=== PATIENT | male | born 1985 | race Caucasian/White ===

== ENCOUNTER 2021-01-23 12:18 | Inpatient (IN) | payer OTHER ==
[2021-01-23 13:58] VITALS: BMI 33.8
[2021-01-23] MEDS ORDERED: METHOCARBAMOL 500 MG TABLET PO PRN (15:06)
[2021-01-23] MEDS ORDERED: IBUPROFEN 400 MG TABLET (FP) PO PRN (15:06)
[2021-01-23] MEDS ORDERED: MAGNESIUM CITRATE 300 ML BOTTLE PO PRN (15:06)
[2021-01-23] MEDS ORDERED: LORazepam 1 MG TABLET PO PRN (15:06)
[2021-01-23] MEDS ORDERED: BISMUTH SUBSALICYLATE 262 MG/15 ML BTL PO PRN (15:06)
[2021-01-23] MEDS ORDERED: MENTHOL/PHENOL 1 EACH UD MM PRN (15:06)
[2021-01-23] MEDS ORDERED: NICOTINE POLACRILEX 2 MG GUM BUC PRN (15:06)
[2021-01-23] MEDS ORDERED: ACETAMINOPHEN 325 MG TABLET (FP) PO PRN ×2 (15:06)
[2021-01-23] MEDS ORDERED: MAG HYDROX/AL HYDROX/SIMETH 30 ML UNIT-DOSE CUP PO PRN (15:06)
[2021-01-23] MEDS ORDERED: MAGNESIUM HYDROX 2400MG/30ML ORAL SUSPENSION 30 ML CUP PO PRN (15:06)
[2021-01-23] MEDS: NICOTINE 14 MG/24 HOURS TOPICAL PATCH TD SCH (15:51)
[2021-01-23] MEDS: PRENATAL VITAMINS W/ FOLIC ACID TABLET (FP) PO SCH (15:51)
[2021-01-23] MEDS: LORazepam 2 MG TABLET PO SCH ×2 (16:56→22:25)
[2021-01-23] MEDS: hydrOXYzine PAMOATE 25 MG CAPSULE (FP) PO SCH ×2 (17:00→22:26)
[2021-01-23 19:41] LABS: CALCIUM 8.7 mg/dL (8.5-10.1)
[2021-01-23 19:42] LABS: ALBUMIN 4.3 g/dl (3.4-5.0); BLOOD UREA NITROGEN 10.1 mg/dL (7-18)
[2021-01-23 19:45] LABS: CREATININE 0.7 mg/dL (0.55-1.3)
[2021-01-23 19:46] LABS: BILIRUBIN,TOTAL 0.5 mg/dL (0.2-1); TOT PROT 8.1 g/dl (6.4-8.2)
[2021-01-23 19:47] LABS: HEMATOCRIT 41.3 % (35.4-49); HEMOGLOBIN 13.6 GM/dL (11.7-16.9); MCHC 32.9 g/dl (32.0-35.9); MEAN CELL VOLUME 88.1 fl (80-96); MEAN PLT VOLUME 8.4 fl (7.5-11.1); PLATELET COUNT 238 K/MM3 (134-434); RBC 4.69 M/mm3 (4.00-5.60); RDW 14.1 % (11.9-15.9); WHITE BLOOD COUNT 6.3 K/mm3 (4.0-10.0)
[2021-01-23] MEDS ORDERED: MELATONIN 5 MG TABLETS PO SCH (22:00)
[2021-01-23] MEDS: BUPRENORPHINE/NALOXONE 8 MG/2 MG FILM PACKET SL SCH (22:25)
[2021-01-23] MEDS: THIAMINE HCL 100 MG TABLET (FP) PO SCH (22:26)
[2021-01-24] MEDS: LORazepam 2 MG TABLET PO SCH ×4 (05:07→22:09)
[2021-01-24] MEDS: hydrOXYzine PAMOATE 25 MG CAPSULE (FP) PO SCH ×5 (05:08→22:11)
[2021-01-24] MEDS: BUPRENORPHINE/NALOXONE 8 MG/2 MG FILM PACKET SL SCH ×2 (10:22→22:08)
[2021-01-24] MEDS: NICOTINE 14 MG/24 HOURS TOPICAL PATCH TD SCH (10:22)
[2021-01-24] MEDS: PRENATAL VITAMINS W/ FOLIC ACID TABLET (FP) PO SCH (10:22)
[2021-01-24] MEDS ORDERED: FLU VACCINE (FLULAVAL) PF 60 MCG/0.5 ML SYRINGE 2020-2021 IM ONE (12:00)
[2021-01-24] MEDS: ONDANSETRON *ODT* 4 MG TABLET SL PRN (14:51)
[2021-01-24] MEDS: THIAMINE HCL 100 MG TABLET (FP) PO SCH (22:09)
[2021-01-24] MEDS: SUVOREXANT 10 MG TABLET PO PRN (22:10)
[2021-01-25] MEDS: hydrOXYzine PAMOATE 25 MG CAPSULE (FP) PO SCH ×5 (05:16→22:21)
[2021-01-25] MEDS: LORazepam 1 MG TABLET PO SCH ×4 (05:17→22:22)
[2021-01-25] MEDS: PRENATAL VITAMINS W/ FOLIC ACID TABLET (FP) PO SCH (10:49)
[2021-01-25] MEDS: BUPRENORPHINE/NALOXONE 8 MG/2 MG FILM PACKET SL SCH ×2 (10:49→22:21)
[2021-01-25] MEDS: NICOTINE 14 MG/24 HOURS TOPICAL PATCH TD SCH (10:53)
[2021-01-25] MEDS: THIAMINE HCL 100 MG TABLET (FP) PO SCH (22:21)
[2021-01-25] MEDS: SUVOREXANT 10 MG TABLET PO PRN (23:00)
[2021-01-26] MEDS: LORazepam 0.5 MG TABLET PO SCH ×4 (05:25→22:17)
[2021-01-26] MEDS: hydrOXYzine PAMOATE 25 MG CAPSULE (FP) PO SCH ×5 (05:25→22:18)
[2021-01-26] MEDS: BUPRENORPHINE/NALOXONE 8 MG/2 MG FILM PACKET SL SCH ×2 (10:21→22:16)
[2021-01-26] MEDS: PRENATAL VITAMINS W/ FOLIC ACID TABLET (FP) PO SCH (10:21)
[2021-01-26] MEDS: NICOTINE 14 MG/24 HOURS TOPICAL PATCH TD SCH (10:22)
[2021-01-26] MEDS: LORazepam 0.5 MG TABLET PO PRN ×2 (13:00→19:07)
[2021-01-26] MEDS ORDERED: hydrOXYzine PAMOATE 25 MG CAPSULE (FP) PO SCH (16:00)
[2021-01-26] MEDS: ONDANSETRON *ODT* 4 MG TABLET SL PRN (18:40)
[2021-01-26] MEDS ORDERED: SUVOREXANT 10 MG TABLET PO PRN (22:00)
[2021-01-26] MEDS: THIAMINE HCL 100 MG TABLET (FP) PO SCH (22:16)
[2021-01-27] MEDS: hydrOXYzine PAMOATE 25 MG CAPSULE (FP) PO SCH ×3 (00:16→07:57)
[2021-01-27] MEDS ORDERED: LORazepam 0.5 MG TABLET PO ONE (05:00)
[2021-01-27 09:04] VITALS: BP 136/88; PULSE 76; TEMP 96.9
[2021-01-27] MEDS ORDERED: VENLAFAXINE HCL 75 MG E.R. CAPSULES PO SCH (10:00)
[2021-01-27] MEDS: PRENATAL VITAMINS W/ FOLIC ACID TABLET (FP) PO SCH (10:46)
[2021-01-27] MEDS: NICOTINE 14 MG/24 HOURS TOPICAL PATCH TD SCH (10:46)
[2021-01-27] MEDS: BUPRENORPHINE/NALOXONE 8 MG/2 MG FILM PACKET SL SCH (10:46)
== END 2021-01-27 11:06 | disposition other institution (70) | DRG 773 ==
LOC: YASAS 12:18 → Y6N 15:05
PROVIDERS: ADMIT Allergy & Immunology; ATTEND Allergy & Immunology
PROC: HZ2ZZZZ Detoxification Services for Substance Abuse Treatment (ICD-10-PCS; principal; 2021-01-23)
DX: F10.230 Alcohol dependence with withdrawal, uncomplicated (principal); F13.230 Sedative, hypnotic or anxiolytic dependence with withdrawal, uncomplicated; F14.20 Cocaine dependence, uncomplicated; F11.20 Opioid dependence, uncomplicated; F19.282 Other psychoactive substance dependence with psychoactive substance-induced sleep disorder; F19.24 Other psychoactive substance dependence with psychoactive substance-induced mood disorder; F41.8 Other specified anxiety disorders; F32.9 Major depressive disorder, single episode, unspecified; F90.9 Attention-deficit hyperactivity disorder, unspecified type; Z51.81 Encounter for therapeutic drug level monitoring; Z56.0 Unemployment, unspecified; Z59.0 Homelessness
CPT/HCPCS: 36415; 80053; 85027; 86780; 93005; 93010; C9803; G0008; Q0162; Q2036; U0003; U0005

== ENCOUNTER 2021-06-02 11:01 | Inpatient (IN) | payer OTHER ==
[2021-06-02 11:45] VITALS: BMI 27.3
[2021-06-02] MEDS ORDERED: MAGNESIUM CITRATE 300 ML BOTTLE PO PRN (14:48)
[2021-06-02] MEDS ORDERED: MAGNESIUM HYDROX 2400MG/30ML ORAL SUSPENSION 30 ML CUP PO PRN (14:48)
[2021-06-02] MEDS ORDERED: IBUPROFEN 400 MG TABLET (FP) PO PRN (14:48)
[2021-06-02] MEDS ORDERED: METHOCARBAMOL 500 MG TABLET PO PRN (14:48)
[2021-06-02] MEDS ORDERED: MENTHOL/PHENOL 1 EACH UD MM PRN (14:48)
[2021-06-02] MEDS ORDERED: ACETAMINOPHEN 325 MG TABLET (FP) PO PRN ×2 (14:48)
[2021-06-02] MEDS ORDERED: MAG HYDROX/AL HYDROX/SIMETH 30 ML UNIT-DOSE CUP PO PRN (14:48)
[2021-06-02] MEDS ORDERED: ONDANSETRON *ODT* 4 MG TABLET SL PRN (14:48)
[2021-06-02] MEDS ORDERED: BISMUTH SUBSALICYLATE 524 MG/30 ML PO PRN (14:48)
[2021-06-02] MEDS ORDERED: NICOTINE 10 MG CARTRIDGE (INHALER) IH PRN (14:48)
[2021-06-02] MEDS ORDERED: methaDONE HCL 10 MG TABLET PO ONE (18:00)
[2021-06-02] MEDS: hydrOXYzine PAMOATE 25 MG CAPSULE (FP) PO SCH ×2 (18:39→22:24)
[2021-06-02] MEDS: diazePAM 5 MG TABLET PO PRN (18:43)
[2021-06-02] MEDS ORDERED: MELATONIN 5 MG TABLETS PO SCH (22:00)
[2021-06-02] MEDS: diazePAM 5 MG TABLET PO SCH (22:22)
[2021-06-02] MEDS: THIAMINE HCL 100 MG TABLET (FP) PO SCH (22:24)
[2021-06-03] MEDS: diazePAM 5 MG TABLET PO SCH ×4 (06:23→22:12)
[2021-06-03] MEDS: hydrOXYzine PAMOATE 25 MG CAPSULE (FP) PO SCH ×5 (06:23→22:13)
[2021-06-03] MEDS: PRENATAL VITAMINS W/ FOLIC ACID TABLET (FP) PO SCH (10:21)
[2021-06-03 10:47] LABS: HEMOGLOBIN 13.8 GM/dL (11.7-16.9); MCH 29.3 pg (25.7-33.7); MCHC 33.7 g/dl (32.0-35.9); MEAN CELL VOLUME 86.9 fl (80-96); MEAN PLT VOLUME 8.8 fl (7.5-11.1); PLATELET COUNT 194 10^3/uL (134-434); RBC 4.71 M/mm3 (4.00-5.60); RDW 14.3 % (11.9-15.9); WHITE BLOOD COUNT 4.7 K/mm3 (4.0-10.0)
[2021-06-03 11:00] LABS: CALCIUM 8.8 mg/dL (8.5-10.1)
[2021-06-03 11:01] LABS: ALBUMIN 3.3 g/dl (3.4-5.0); BLOOD UREA NITROGEN 12.4 mg/dL (7-18)
[2021-06-03 11:04] LABS: CREATININE 0.6 mg/dL (0.55-1.3)
[2021-06-03 11:05] LABS: BILIRUBIN,TOTAL 0.4 mg/dL (0.2-1)
[2021-06-03 11:06] LABS: TOT PROT 7.2 g/dl (6.4-8.2)
[2021-06-03 11:54] LABS: HIV INTERPRETATION NEGATIVE (NEGATIVE)
[2021-06-03] MEDS ORDERED: methaDONE HCL 10 MG TABLET PO ONE (12:44)
[2021-06-03] MEDS: diazePAM 5 MG TABLET PO PRN (12:57)
[2021-06-03] MEDS: methaDONE HCL 40 MG DISPERSABLE TABLET PO SCH (13:04)
[2021-06-03] MEDS: GABAPENTIN 300 MG CAPSULE PO SCH ×2 (14:51→22:12)
[2021-06-03] MEDS: cloNIDine HCL 0.1 MG TABLET PO PRN (17:13)
[2021-06-03] MEDS: THIAMINE HCL 100 MG TABLET (FP) PO SCH (22:13)
[2021-06-03] MEDS: SUVOREXANT 10 MG TABLET PO PRN (22:14)
[2021-06-04] MEDS: methaDONE HCL 40 MG DISPERSABLE TABLET PO SCH (05:41)
[2021-06-04] MEDS: GABAPENTIN 300 MG CAPSULE PO SCH ×3 (05:41→22:12)
[2021-06-04] MEDS: diazePAM 5 MG TABLET PO SCH ×3 (05:41→22:12)
[2021-06-04] MEDS: hydrOXYzine PAMOATE 25 MG CAPSULE (FP) PO SCH ×5 (05:41→22:12)
[2021-06-04] MEDS: PRENATAL VITAMINS W/ FOLIC ACID TABLET (FP) PO SCH (10:12)
[2021-06-04] MEDS: VENLAFAXINE HCL 150 MG E.R. CAPSULE PO SCH (10:12)
[2021-06-04] MEDS: diazePAM 5 MG TABLET PO PRN ×2 (10:13→17:32)
[2021-06-04] MEDS: THIAMINE HCL 100 MG TABLET (FP) PO SCH (22:12)
[2021-06-04] MEDS: SUVOREXANT 10 MG TABLET PO PRN (22:12)
[2021-06-05] MEDS: hydrOXYzine PAMOATE 25 MG CAPSULE (FP) PO SCH ×5 (06:00→22:16)
[2021-06-05] MEDS: diazePAM 5 MG TABLET PO SCH ×2 (06:07→17:32)
[2021-06-05] MEDS: methaDONE HCL 40 MG DISPERSABLE TABLET PO SCH (06:08)
[2021-06-05] MEDS: GABAPENTIN 300 MG CAPSULE PO SCH ×3 (06:10→22:16)
[2021-06-05] MEDS: diazePAM 5 MG TABLET PO PRN ×3 (10:06→22:18)
[2021-06-05] MEDS: PRENATAL VITAMINS W/ FOLIC ACID TABLET (FP) PO SCH (10:06)
[2021-06-05] MEDS: VENLAFAXINE HCL 150 MG E.R. CAPSULE PO SCH (10:06)
[2021-06-05 14:05] LABS: GLUCOSE,FASTING 123 mg/dL (74-106)
[2021-06-05 14:11] LABS: ALK PHOS 144 U/L (45-117)
[2021-06-05] MEDS: SUVOREXANT 10 MG TABLET PO PRN (22:17)
[2021-06-05] MEDS: THIAMINE HCL 100 MG TABLET (FP) PO SCH (22:17)
[2021-06-06] MEDS: cloNIDine HCL 0.1 MG TABLET PO PRN (00:44)
[2021-06-06] MEDS: methaDONE HCL 40 MG DISPERSABLE TABLET PO SCH (05:34)
[2021-06-06] MEDS: GABAPENTIN 300 MG CAPSULE PO SCH (05:35)
[2021-06-06] MEDS: hydrOXYzine PAMOATE 25 MG CAPSULE (FP) PO SCH ×2 (05:35→10:13)
[2021-06-06] MEDS ORDERED: diazePAM 5 MG TABLET PO ONE (06:00)
[2021-06-06 08:50] VITALS: BP 118/79; PULSE 52; TEMP 96.4
[2021-06-06] MEDS: VENLAFAXINE HCL 150 MG E.R. CAPSULE PO SCH (10:13)
[2021-06-06] MEDS: diazePAM 5 MG TABLET PO PRN (10:13)
[2021-06-06] MEDS: PRENATAL VITAMINS W/ FOLIC ACID TABLET (FP) PO SCH (10:13)
[2021-06-06] MEDS ORDERED: propRANOLol HCL 10 MG TABLET PO SCH (14:00)
== END 2021-06-06 12:15 | disposition other institution (70) | DRG 773 ==
LOC: YASAS 11:01 → Y3N 15:06
PROVIDERS: ADMIT Allergy & Immunology; ATTEND Allergy & Immunology
PROC: HZ2ZZZZ Detoxification Services for Substance Abuse Treatment (ICD-10-PCS; principal; 2021-06-02)
DX: F10.230 Alcohol dependence with withdrawal, uncomplicated (principal); F11.20 Opioid dependence, uncomplicated; F13.230 Sedative, hypnotic or anxiolytic dependence with withdrawal, uncomplicated; F14.20 Cocaine dependence, uncomplicated; F17.210 Nicotine dependence, cigarettes, uncomplicated; F41.9 Anxiety disorder, unspecified; F32.9 Major depressive disorder, single episode, unspecified; F19.24 Other psychoactive substance dependence with psychoactive substance-induced mood disorder; F19.280 Other psychoactive substance dependence with psychoactive substance-induced anxiety disorder; F19.282 Other psychoactive substance dependence with psychoactive substance-induced sleep disorder; F90.9 Attention-deficit hyperactivity disorder, unspecified type; G47.00 Insomnia, unspecified; Z86.69 Personal history of other diseases of the nervous system and sense organs; Z86.19 Personal history of other infectious and parasitic diseases; Z56.0 Unemployment, unspecified; Z59.0 Homelessness
CPT/HCPCS: 36415; 80053; 82947; 84075; 85027; 86780; 87389; C9803; J0735; U0003; U0005

== ENCOUNTER 2021-06-06 11:57 | Inpatient (IN) | payer OTHER ==
[2021-06-06] MEDS ORDERED: ACETAMINOPHEN 325 MG TABLET (FP) PO PRN (12:55)
[2021-06-06] MEDS ORDERED: guaiFENesin 200 MG/10 ML 10 ML UNIT-DOSE CUPS PO PRN (12:55)
[2021-06-06] MEDS ORDERED: MAGNESIUM HYDROX 2400MG/30ML ORAL SUSPENSION 30 ML CUP PO PRN (12:55)
[2021-06-06] MEDS ORDERED: MAGNESIUM CITRATE 300 ML BOTTLE PO PRN (12:55)
[2021-06-06] MEDS ORDERED: MENTHOL/PHENOL 1 EACH UD MM PRN (12:55)
[2021-06-06] MEDS ORDERED: IBUPROFEN 400 MG TABLET (FP) PO PRN (12:55)
[2021-06-06] MEDS ORDERED: P-EPHED 60MG/TRIPROLIDI 2.5MG TABLET PO PRN (12:55)
[2021-06-06] MEDS ORDERED: MAG HYDROX/AL HYDROX/SIMETH 30 ML UNIT-DOSE CUP PO PRN (12:55)
[2021-06-06] MEDS ORDERED: LOPERAMIDE HCL 2 MG CAPSULE PO PRN (12:55)
[2021-06-06] MEDS ORDERED: GABAPENTIN 300 MG CAPSULE PO SCH (14:00)
[2021-06-06] MEDS: propRANOLol HCL 10 MG TABLET PO SCH ×2 (14:34→21:54)
[2021-06-06] MEDS ORDERED: GABAPENTIN 400 MG CAPSULE PO SCH (16:30)
[2021-06-06] MEDS: hydrOXYzine PAMOATE 25 MG CAPSULE (FP) PO PRN ×2 (17:04→21:54)
[2021-06-06] MEDS: MELATONIN 5 MG TABLETS PO SCH (21:53)
[2021-06-06] MEDS: THIAMINE HCL 100 MG TABLET (FP) PO SCH (21:54)
[2021-06-06] MEDS: GABAPENTIN 300 MG CAPSULE PO SCH (21:56)
[2021-06-06] MEDS: NICOTINE 10 MG CARTRIDGE (INHALER) IH PRN (21:57)
[2021-06-06] MEDS: SUVOREXANT 10 MG TABLET PO PRN (22:35)
[2021-06-07] MEDS ORDERED: PT OWN MED DRAWER 7, Y5N ONE ×2 (06:33→22:23)
[2021-06-07] MEDS: GABAPENTIN 300 MG CAPSULE PO SCH ×3 (06:39→21:10)
[2021-06-07] MEDS: methaDONE HCL 40 MG DISPERSABLE TABLET PO SCH (06:39)
[2021-06-07] MEDS: propRANOLol HCL 10 MG TABLET PO SCH ×4 (07:26→21:09)
[2021-06-07] MEDS: VENLAFAXINE HCL 150 MG E.R. CAPSULE PO SCH (09:44)
[2021-06-07] MEDS: NICOTINE 21 MG/24 HOURS TOPICAL PATCH TD SCH (09:44)
[2021-06-07] MEDS: NICOTINE 10 MG CARTRIDGE (INHALER) IH PRN (09:45)
[2021-06-07] MEDS ORDERED: NICOTINE 7 MG/24 HOURS TOPICAL PATCH TD SCH (10:00)
[2021-06-07] MEDS: PRENATAL VITAMINS W/ FOLIC ACID TABLET (FP) PO SCH (10:05)
[2021-06-07] MEDS ORDERED: hydrOXYzine PAMOATE 25 MG CAPSULE (FP) PO ONE (13:45)
[2021-06-07] MEDS: METHOCARBAMOL 500 MG TABLET PO PRN (21:09)
[2021-06-07] MEDS: hydrOXYzine PAMOATE 25 MG CAPSULE (FP) PO PRN (21:09)
[2021-06-07] MEDS: SUVOREXANT 10 MG TABLET PO PRN (21:10)
[2021-06-07] MEDS: THIAMINE HCL 100 MG TABLET (FP) PO SCH (21:11)
[2021-06-07] MEDS: MELATONIN 5 MG TABLETS PO SCH (21:11)
[2021-06-08] MEDS ORDERED: PT OWN MED DRAWER 7, Y5N ONE ×2 (03:08→20:29)
[2021-06-08] MEDS: methaDONE HCL 40 MG DISPERSABLE TABLET PO SCH (06:18)
[2021-06-08] MEDS: propRANOLol HCL 10 MG TABLET PO SCH ×3 (06:19→21:07)
[2021-06-08] MEDS: GABAPENTIN 300 MG CAPSULE PO SCH ×3 (06:19→21:07)
[2021-06-08] MEDS: NICOTINE 21 MG/24 HOURS TOPICAL PATCH TD SCH (09:29)
[2021-06-08] MEDS: VENLAFAXINE HCL 150 MG E.R. CAPSULE PO SCH (09:29)
[2021-06-08] MEDS: PRENATAL VITAMINS W/ FOLIC ACID TABLET (FP) PO SCH (09:30)
[2021-06-08] MEDS: MELATONIN 5 MG TABLETS PO SCH (21:07)
[2021-06-08] MEDS: THIAMINE HCL 100 MG TABLET (FP) PO SCH (21:07)
[2021-06-08] MEDS: METHOCARBAMOL 500 MG TABLET PO PRN (21:08)
[2021-06-08] MEDS: SUVOREXANT 10 MG TABLET PO PRN (21:09)
[2021-06-09] MEDS ORDERED: PT OWN MED DRAWER 7, Y5N ONE ×3 (05:32→19:13)
[2021-06-09] MEDS: methaDONE HCL 40 MG DISPERSABLE TABLET PO SCH (06:14)
[2021-06-09] MEDS: GABAPENTIN 300 MG CAPSULE PO SCH ×3 (06:15→21:18)
[2021-06-09] MEDS: propRANOLol HCL 10 MG TABLET PO SCH ×3 (06:15→21:18)
[2021-06-09] MEDS: PRENATAL VITAMINS W/ FOLIC ACID TABLET (FP) PO SCH (09:31)
[2021-06-09] MEDS: NICOTINE 21 MG/24 HOURS TOPICAL PATCH TD SCH (09:31)
[2021-06-09] MEDS: VENLAFAXINE HCL 150 MG E.R. CAPSULE PO SCH (09:31)
[2021-06-09] MEDS: hydrOXYzine PAMOATE 25 MG CAPSULE (FP) PO PRN ×2 (10:48→21:19)
[2021-06-09] MEDS: NICOTINE 10 MG CARTRIDGE (INHALER) IH PRN (15:49)
[2021-06-09] MEDS: SUVOREXANT 10 MG TABLET PO PRN (21:19)
[2021-06-09] MEDS: THIAMINE HCL 100 MG TABLET (FP) PO SCH (21:20)
[2021-06-09] MEDS: MELATONIN 5 MG TABLETS PO SCH (22:11)
[2021-06-10] MEDS: GABAPENTIN 300 MG CAPSULE PO SCH ×3 (06:26→21:52)
[2021-06-10] MEDS: propRANOLol HCL 10 MG TABLET PO SCH ×3 (06:26→21:52)
[2021-06-10] MEDS: methaDONE HCL 40 MG DISPERSABLE TABLET PO SCH (06:27)
[2021-06-10] MEDS: hydrOXYzine PAMOATE 25 MG CAPSULE (FP) PO PRN ×3 (08:00→17:47)
[2021-06-10] MEDS: PRENATAL VITAMINS W/ FOLIC ACID TABLET (FP) PO SCH (09:57)
[2021-06-10] MEDS: NICOTINE 21 MG/24 HOURS TOPICAL PATCH TD SCH (09:57)
[2021-06-10] MEDS ORDERED: PT OWN MED DRAWER 7, Y5N ONE (09:58)
[2021-06-10] MEDS: VENLAFAXINE HCL 150 MG E.R. CAPSULE PO SCH (09:58)
[2021-06-10] MEDS: NICOTINE 10 MG CARTRIDGE (INHALER) IH PRN (18:23)
[2021-06-10] MEDS: THIAMINE HCL 100 MG TABLET (FP) PO SCH (21:52)
[2021-06-10] MEDS: MELATONIN 5 MG TABLETS PO SCH (21:52)
[2021-06-10] MEDS ORDERED: SUVOREXANT 10 MG TABLET PO PRN (22:00)
[2021-06-11] MEDS ORDERED: PT OWN MED DRAWER 7, Y5N ONE ×3 (03:15→21:19)
[2021-06-11] MEDS: GABAPENTIN 300 MG CAPSULE PO SCH ×3 (06:36→21:18)
[2021-06-11] MEDS: propRANOLol HCL 10 MG TABLET PO SCH ×3 (06:36→21:19)
[2021-06-11] MEDS: methaDONE HCL 40 MG DISPERSABLE TABLET PO SCH (06:36)
[2021-06-11] MEDS: NICOTINE 10 MG CARTRIDGE (INHALER) IH PRN ×2 (07:54→14:10)
[2021-06-11] MEDS: hydrOXYzine PAMOATE 25 MG CAPSULE (FP) PO PRN ×4 (07:54→21:18)
[2021-06-11] MEDS: NICOTINE 21 MG/24 HOURS TOPICAL PATCH TD SCH (09:32)
[2021-06-11] MEDS: VENLAFAXINE HCL 150 MG E.R. CAPSULE PO SCH (09:32)
[2021-06-11] MEDS: PRENATAL VITAMINS W/ FOLIC ACID TABLET (FP) PO SCH (09:32)
[2021-06-11] MEDS: THIAMINE HCL 100 MG TABLET (FP) PO SCH (21:18)
[2021-06-11] MEDS: SUVOREXANT 15 MG TABLET PO PRN (22:38)
[2021-06-12] MEDS ORDERED: PT OWN MED DRAWER 7, Y5N ONE ×4 (03:24→19:54)
[2021-06-12] MEDS: GABAPENTIN 300 MG CAPSULE PO SCH ×3 (06:12→21:02)
[2021-06-12] MEDS: hydrOXYzine PAMOATE 25 MG CAPSULE (FP) PO PRN ×3 (06:12→16:36)
[2021-06-12] MEDS: propRANOLol HCL 10 MG TABLET PO SCH ×3 (06:12→21:02)
[2021-06-12] MEDS: methaDONE HCL 40 MG DISPERSABLE TABLET PO SCH (06:12)
[2021-06-12] MEDS: PRENATAL VITAMINS W/ FOLIC ACID TABLET (FP) PO SCH (09:30)
[2021-06-12] MEDS: VENLAFAXINE HCL 150 MG E.R. CAPSULE PO SCH (09:30)
[2021-06-12] MEDS: NICOTINE 21 MG/24 HOURS TOPICAL PATCH TD SCH (09:30)
[2021-06-12] MEDS: THIAMINE HCL 100 MG TABLET (FP) PO SCH (21:02)
[2021-06-12] MEDS: SUVOREXANT 15 MG TABLET PO PRN (21:03)
[2021-06-13] MEDS ORDERED: PT OWN MED DRAWER 7, Y5N ONE ×4 (05:33→19:58)
[2021-06-13] MEDS: methaDONE HCL 40 MG DISPERSABLE TABLET PO SCH (06:19)
[2021-06-13] MEDS: propRANOLol HCL 10 MG TABLET PO SCH ×3 (06:20→21:29)
[2021-06-13] MEDS: GABAPENTIN 300 MG CAPSULE PO SCH ×3 (06:20→21:29)
[2021-06-13] MEDS: hydrOXYzine PAMOATE 25 MG CAPSULE (FP) PO PRN ×3 (06:20→18:03)
[2021-06-13] MEDS: VENLAFAXINE HCL 150 MG E.R. CAPSULE PO SCH (09:27)
[2021-06-13] MEDS: PRENATAL VITAMINS W/ FOLIC ACID TABLET (FP) PO SCH (09:27)
[2021-06-13] MEDS: NICOTINE 21 MG/24 HOURS TOPICAL PATCH TD SCH (09:29)
[2021-06-13] MEDS: SUVOREXANT 15 MG TABLET PO PRN (21:29)
[2021-06-13] MEDS: THIAMINE HCL 100 MG TABLET (FP) PO SCH (21:30)
[2021-06-14] MEDS ORDERED: PT OWN MED DRAWER 7, Y5N ONE ×4 (03:31→22:31)
[2021-06-14] MEDS: methaDONE HCL 40 MG DISPERSABLE TABLET PO SCH (06:20)
[2021-06-14] MEDS: GABAPENTIN 300 MG CAPSULE PO SCH ×3 (06:21→22:17)
[2021-06-14] MEDS: hydrOXYzine PAMOATE 25 MG CAPSULE (FP) PO PRN ×4 (06:22→22:17)
[2021-06-14] MEDS: propRANOLol HCL 10 MG TABLET PO SCH ×3 (08:05→22:18)
[2021-06-14] MEDS: NICOTINE 10 MG CARTRIDGE (INHALER) IH PRN (09:04)
[2021-06-14] MEDS: PRENATAL VITAMINS W/ FOLIC ACID TABLET (FP) PO SCH (09:54)
[2021-06-14] MEDS: VENLAFAXINE HCL 150 MG E.R. CAPSULE PO SCH (09:54)
[2021-06-14] MEDS: NICOTINE 21 MG/24 HOURS TOPICAL PATCH TD SCH (09:54)
[2021-06-14] MEDS: THIAMINE HCL 100 MG TABLET (FP) PO SCH (22:18)
[2021-06-14] MEDS: METHOCARBAMOL 500 MG TABLET PO PRN (22:18)
[2021-06-14] MEDS: SUVOREXANT 15 MG TABLET PO PRN (22:21)
[2021-06-15] MEDS ORDERED: PT OWN MED DRAWER 7, Y5N ONE ×2 (03:29→08:41)
[2021-06-15] MEDS: methaDONE HCL 40 MG DISPERSABLE TABLET PO SCH (06:36)
[2021-06-15] MEDS: GABAPENTIN 300 MG CAPSULE PO SCH ×3 (06:37→21:12)
[2021-06-15] MEDS: hydrOXYzine PAMOATE 25 MG CAPSULE (FP) PO PRN ×2 (06:37→17:39)
[2021-06-15] MEDS: propRANOLol HCL 10 MG TABLET PO SCH ×3 (06:38→21:11)
[2021-06-15] MEDS: NICOTINE 21 MG/24 HOURS TOPICAL PATCH TD SCH (09:33)
[2021-06-15] MEDS: PRENATAL VITAMINS W/ FOLIC ACID TABLET (FP) PO SCH (09:33)
[2021-06-15] MEDS: VENLAFAXINE HCL 150 MG E.R. CAPSULE PO SCH (09:33)
[2021-06-15] MEDS: NICOTINE 10 MG CARTRIDGE (INHALER) IH PRN (09:33)
[2021-06-15] MEDS: THIAMINE HCL 100 MG TABLET (FP) PO SCH (21:11)
[2021-06-15] MEDS: METHOCARBAMOL 500 MG TABLET PO PRN (21:11)
[2021-06-15] MEDS: SUVOREXANT 15 MG TABLET PO PRN (21:11)
[2021-06-16] MEDS ORDERED: PT OWN MED DRAWER 7, Y5N ONE ×4 (03:28→19:12)
[2021-06-16] MEDS: methaDONE HCL 40 MG DISPERSABLE TABLET PO SCH (06:34)
[2021-06-16] MEDS: GABAPENTIN 300 MG CAPSULE PO SCH ×3 (06:34→21:11)
[2021-06-16] MEDS: propRANOLol HCL 10 MG TABLET PO SCH ×3 (06:34→21:11)
[2021-06-16] MEDS: hydrOXYzine PAMOATE 25 MG CAPSULE (FP) PO PRN ×3 (09:26→21:11)
[2021-06-16] MEDS: NICOTINE 21 MG/24 HOURS TOPICAL PATCH TD SCH (09:27)
[2021-06-16] MEDS: NICOTINE 10 MG CARTRIDGE (INHALER) IH PRN (09:27)
[2021-06-16] MEDS: PRENATAL VITAMINS W/ FOLIC ACID TABLET (FP) PO SCH (09:27)
[2021-06-16] MEDS: VENLAFAXINE HCL 150 MG E.R. CAPSULE PO SCH (09:27)
[2021-06-16] MEDS: SUVOREXANT 15 MG TABLET PO PRN (21:10)
[2021-06-16] MEDS: METHOCARBAMOL 500 MG TABLET PO PRN (21:11)
[2021-06-16] MEDS: THIAMINE HCL 100 MG TABLET (FP) PO SCH (21:11)
[2021-06-17] MEDS ORDERED: PT OWN MED DRAWER 7, Y5N ONE ×3 (03:13→18:44)
[2021-06-17] MEDS: methaDONE HCL 40 MG DISPERSABLE TABLET PO SCH (06:17)
[2021-06-17] MEDS: GABAPENTIN 300 MG CAPSULE PO SCH ×3 (06:18→21:25)
[2021-06-17] MEDS: propRANOLol HCL 10 MG TABLET PO SCH ×3 (06:18→21:25)
[2021-06-17] MEDS: NICOTINE 10 MG CARTRIDGE (INHALER) IH PRN (08:53)
[2021-06-17] MEDS: hydrOXYzine PAMOATE 25 MG CAPSULE (FP) PO PRN ×2 (09:43→13:41)
[2021-06-17] MEDS: PRENATAL VITAMINS W/ FOLIC ACID TABLET (FP) PO SCH (09:43)
[2021-06-17] MEDS: VENLAFAXINE HCL 150 MG E.R. CAPSULE PO SCH (09:43)
[2021-06-17] MEDS: NICOTINE 21 MG/24 HOURS TOPICAL PATCH TD SCH (09:43)
[2021-06-17] MEDS: THIAMINE HCL 100 MG TABLET (FP) PO SCH (21:25)
[2021-06-17] MEDS: SUVOREXANT 15 MG TABLET PO PRN (21:25)
[2021-06-18] MEDS ORDERED: PT OWN MED DRAWER 7, Y5N ONE ×4 (05:10→20:17)
[2021-06-18] MEDS: methaDONE HCL 40 MG DISPERSABLE TABLET PO SCH (06:21)
[2021-06-18] MEDS: propRANOLol HCL 10 MG TABLET PO SCH ×3 (06:21→21:10)
[2021-06-18] MEDS: GABAPENTIN 300 MG CAPSULE PO SCH ×3 (06:21→21:10)
[2021-06-18] MEDS: hydrOXYzine PAMOATE 25 MG CAPSULE (FP) PO PRN ×3 (06:21→19:29)
[2021-06-18] MEDS: VENLAFAXINE HCL 150 MG E.R. CAPSULE PO SCH (09:25)
[2021-06-18] MEDS: PRENATAL VITAMINS W/ FOLIC ACID TABLET (FP) PO SCH (09:25)
[2021-06-18] MEDS: NICOTINE 21 MG/24 HOURS TOPICAL PATCH TD SCH (09:25)
[2021-06-18] MEDS: NICOTINE 10 MG CARTRIDGE (INHALER) IH PRN (09:26)
[2021-06-18] MEDS: SUVOREXANT 15 MG TABLET PO PRN (21:10)
[2021-06-18] MEDS: THIAMINE HCL 100 MG TABLET (FP) PO SCH (21:11)
[2021-06-19] MEDS ORDERED: PT OWN MED DRAWER 7, Y5N ONE ×4 (05:32→20:04)
[2021-06-19] MEDS: methaDONE HCL 40 MG DISPERSABLE TABLET PO SCH (06:33)
[2021-06-19] MEDS: GABAPENTIN 300 MG CAPSULE PO SCH ×3 (06:33→21:08)
[2021-06-19] MEDS: propRANOLol HCL 10 MG TABLET PO SCH ×3 (06:33→21:08)
[2021-06-19] MEDS: hydrOXYzine PAMOATE 25 MG CAPSULE (FP) PO PRN ×2 (07:22→17:21)
[2021-06-19] MEDS: NICOTINE 10 MG CARTRIDGE (INHALER) IH PRN (09:24)
[2021-06-19] MEDS: VENLAFAXINE HCL 150 MG E.R. CAPSULE PO SCH (09:24)
[2021-06-19] MEDS: NICOTINE 21 MG/24 HOURS TOPICAL PATCH TD SCH (09:24)
[2021-06-19] MEDS: PRENATAL VITAMINS W/ FOLIC ACID TABLET (FP) PO SCH (09:24)
[2021-06-19] MEDS: THIAMINE HCL 100 MG TABLET (FP) PO SCH (21:08)
[2021-06-19] MEDS: SUVOREXANT 15 MG TABLET PO PRN (21:09)
[2021-06-20] MEDS ORDERED: PT OWN MED DRAWER 7, Y5N ONE ×2 (05:13→08:39)
[2021-06-20] MEDS: methaDONE HCL 40 MG DISPERSABLE TABLET PO SCH (06:20)
[2021-06-20] MEDS: propRANOLol HCL 10 MG TABLET PO SCH ×3 (06:20→21:22)
[2021-06-20] MEDS: hydrOXYzine PAMOATE 25 MG CAPSULE (FP) PO PRN ×3 (06:20→21:23)
[2021-06-20] MEDS: GABAPENTIN 300 MG CAPSULE PO SCH ×3 (06:20→21:22)
[2021-06-20] MEDS: PRENATAL VITAMINS W/ FOLIC ACID TABLET (FP) PO SCH (09:34)
[2021-06-20] MEDS: NICOTINE 21 MG/24 HOURS TOPICAL PATCH TD SCH (09:34)
[2021-06-20] MEDS: VENLAFAXINE HCL 150 MG E.R. CAPSULE PO SCH (09:34)
[2021-06-20] MEDS: NICOTINE 10 MG CARTRIDGE (INHALER) IH PRN (21:21)
[2021-06-20] MEDS: METHOCARBAMOL 500 MG TABLET PO PRN (21:22)
[2021-06-20] MEDS: THIAMINE HCL 100 MG TABLET (FP) PO SCH (21:22)
[2021-06-20] MEDS: SUVOREXANT 15 MG TABLET PO PRN (21:24)
[2021-06-21] MEDS ORDERED: PT OWN MED DRAWER 7, Y5N ONE ×4 (03:27→19:32)
[2021-06-21] MEDS: propRANOLol HCL 10 MG TABLET PO SCH ×3 (06:33→21:53)
[2021-06-21] MEDS: GABAPENTIN 300 MG CAPSULE PO SCH ×3 (06:33→21:53)
[2021-06-21] MEDS: methaDONE HCL 40 MG DISPERSABLE TABLET PO SCH (06:33)
[2021-06-21] MEDS: hydrOXYzine PAMOATE 25 MG CAPSULE (FP) PO PRN ×2 (08:43→14:06)
[2021-06-21] MEDS: VENLAFAXINE HCL 150 MG E.R. CAPSULE PO SCH (09:38)
[2021-06-21] MEDS: PRENATAL VITAMINS W/ FOLIC ACID TABLET (FP) PO SCH (09:38)
[2021-06-21] MEDS: NICOTINE 21 MG/24 HOURS TOPICAL PATCH TD SCH (09:38)
[2021-06-21] MEDS: SUVOREXANT 15 MG TABLET PO PRN (21:53)
[2021-06-21] MEDS: THIAMINE HCL 100 MG TABLET (FP) PO SCH (21:53)
[2021-06-21] MEDS: METHOCARBAMOL 500 MG TABLET PO PRN (21:53)
[2021-06-21] MEDS: NICOTINE 10 MG CARTRIDGE (INHALER) IH PRN (21:54)
[2021-06-22] MEDS ORDERED: PT OWN MED DRAWER 7, Y5N ONE ×3 (05:21→20:01)
[2021-06-22] MEDS: methaDONE HCL 40 MG DISPERSABLE TABLET PO SCH (06:32)
[2021-06-22] MEDS: GABAPENTIN 300 MG CAPSULE PO SCH ×3 (06:32→21:17)
[2021-06-22] MEDS: propRANOLol HCL 10 MG TABLET PO SCH ×3 (06:32→21:18)
[2021-06-22] MEDS: hydrOXYzine PAMOATE 25 MG CAPSULE (FP) PO PRN ×3 (07:00→21:18)
[2021-06-22] MEDS: PRENATAL VITAMINS W/ FOLIC ACID TABLET (FP) PO SCH (09:34)
[2021-06-22] MEDS: VENLAFAXINE HCL 150 MG E.R. CAPSULE PO SCH (09:34)
[2021-06-22] MEDS: NICOTINE 21 MG/24 HOURS TOPICAL PATCH TD SCH (09:34)
[2021-06-22] MEDS: THIAMINE HCL 100 MG TABLET (FP) PO SCH (21:18)
[2021-06-22] MEDS: SUVOREXANT 15 MG TABLET PO PRN (21:19)
[2021-06-23] MEDS ORDERED: PT OWN MED DRAWER 7, Y5N ONE ×4 (05:36→19:16)
[2021-06-23] MEDS: methaDONE HCL 40 MG DISPERSABLE TABLET PO SCH (06:46)
[2021-06-23] MEDS: propRANOLol HCL 10 MG TABLET PO SCH ×3 (06:47→21:20)
[2021-06-23] MEDS: GABAPENTIN 300 MG CAPSULE PO SCH ×3 (06:47→21:20)
[2021-06-23] MEDS: hydrOXYzine PAMOATE 25 MG CAPSULE (FP) PO PRN ×4 (06:47→21:20)
[2021-06-23] MEDS: VENLAFAXINE HCL 150 MG E.R. CAPSULE PO SCH (09:14)
[2021-06-23] MEDS: PRENATAL VITAMINS W/ FOLIC ACID TABLET (FP) PO SCH (09:14)
[2021-06-23] MEDS: NICOTINE 10 MG CARTRIDGE (INHALER) IH PRN (09:15)
[2021-06-23] MEDS: NICOTINE 21 MG/24 HOURS TOPICAL PATCH TD SCH (09:16)
[2021-06-23] MEDS: SUVOREXANT 15 MG TABLET PO PRN (21:19)
[2021-06-23] MEDS: THIAMINE HCL 100 MG TABLET (FP) PO SCH (21:20)
[2021-06-24] MEDS ORDERED: PT OWN MED DRAWER 7, Y5N ONE ×2 (05:42→08:55)
[2021-06-24] MEDS: hydrOXYzine PAMOATE 25 MG CAPSULE (FP) PO PRN ×5 (06:25→21:20)
[2021-06-24] MEDS: methaDONE HCL 40 MG DISPERSABLE TABLET PO SCH (06:25)
[2021-06-24] MEDS: GABAPENTIN 300 MG CAPSULE PO SCH ×3 (06:25→21:19)
[2021-06-24] MEDS: propRANOLol HCL 10 MG TABLET PO SCH ×3 (06:25→21:20)
[2021-06-24 06:54] VITALS: TEMP 97.1
[2021-06-24] MEDS: NICOTINE 21 MG/24 HOURS TOPICAL PATCH TD SCH (09:42)
[2021-06-24] MEDS: PRENATAL VITAMINS W/ FOLIC ACID TABLET (FP) PO SCH (09:42)
[2021-06-24] MEDS: VENLAFAXINE HCL 150 MG E.R. CAPSULE PO SCH (09:42)
[2021-06-24] MEDS: NICOTINE 10 MG CARTRIDGE (INHALER) IH PRN (17:22)
[2021-06-24] MEDS: THIAMINE HCL 100 MG TABLET (FP) PO SCH (21:20)
[2021-06-24] MEDS: METHOCARBAMOL 500 MG TABLET PO PRN (21:20)
[2021-06-25] MEDS ORDERED: PT OWN MED DRAWER 7, Y5N ONE (03:41)
[2021-06-25] MEDS: hydrOXYzine PAMOATE 25 MG CAPSULE (FP) PO PRN (06:37)
[2021-06-25] MEDS: GABAPENTIN 300 MG CAPSULE PO SCH (06:37)
[2021-06-25] MEDS: methaDONE HCL 40 MG DISPERSABLE TABLET PO SCH (06:37)
[2021-06-25 06:46] VITALS: BP 117/78; PULSE 54
[2021-06-25] MEDS: propRANOLol HCL 10 MG TABLET PO SCH (07:15)
[2021-06-25] MEDS: NICOTINE 21 MG/24 HOURS TOPICAL PATCH TD SCH (09:25)
[2021-06-25] MEDS: PRENATAL VITAMINS W/ FOLIC ACID TABLET (FP) PO SCH (09:25)
[2021-06-25] MEDS: VENLAFAXINE HCL 150 MG E.R. CAPSULE PO SCH (09:25)
== END 2021-06-25 09:30 | disposition home or self-care (01) | DRG 772 ==
LOC: YASAS 11:57 → Y3E 11:59
PROVIDERS: ADMIT Allergy & Immunology; ATTEND Allergy & Immunology
PROC: HZ42ZZZ Group Counseling for Substance Abuse Treatment, Cognitive-Behavioral (ICD-10-PCS; principal; 2021-06-06)
DX: F10.230 Alcohol dependence with withdrawal, uncomplicated (principal); F11.20 Opioid dependence, uncomplicated; F13.230 Sedative, hypnotic or anxiolytic dependence with withdrawal, uncomplicated; F14.20 Cocaine dependence, uncomplicated; F17.210 Nicotine dependence, cigarettes, uncomplicated; F90.9 Attention-deficit hyperactivity disorder, unspecified type; F39 Unspecified mood [affective] disorder; F19.280 Other psychoactive substance dependence with psychoactive substance-induced anxiety disorder; F19.282 Other psychoactive substance dependence with psychoactive substance-induced sleep disorder; F33.9 Major depressive disorder, recurrent, unspecified; G47.00 Insomnia, unspecified; Z56.0 Unemployment, unspecified; Z59.01 Sheltered homelessness

== ENCOUNTER 2021-10-04 12:52 | Inpatient (IN) | payer OTHER ==
[2021-10-04] MEDS ORDERED: IBUPROFEN 400 MG TABLET (FP) PO PRN (13:43)
[2021-10-04] MEDS ORDERED: MENTHOL/PHENOL 1 EACH UD MM PRN (13:43)
[2021-10-04] MEDS ORDERED: ACETAMINOPHEN 325 MG TABLET (FP) PO PRN ×2 (13:43)
[2021-10-04] MEDS ORDERED: ONDANSETRON *ODT* 4 MG TABLET SL PRN (13:43)
[2021-10-04] MEDS ORDERED: MAGNESIUM CITRATE 300 ML BOTTLE PO PRN (13:43)
[2021-10-04] MEDS ORDERED: MAG HYDROX/AL HYDROX/SIMETH 30 ML UNIT-DOSE CUP PO PRN (13:43)
[2021-10-04] MEDS ORDERED: MAGNESIUM HYDROX 2400MG/30ML ORAL SUSPENSION 30 ML CUP PO PRN (13:43)
[2021-10-04] MEDS ORDERED: BISMUTH SUBSALICYLATE 262 MG/15 ML BTL PO PRN (13:43)
[2021-10-04 14:00] VITALS: BMI 34.9
[2021-10-04] MEDS: PRENATAL VITAMINS W/ FOLIC ACID TABLET (FP) PO SCH (17:22)
[2021-10-04] MEDS: diazePAM 5 MG TABLET PO SCH ×2 (17:22→22:52)
[2021-10-04] MEDS: hydrOXYzine PAMOATE 25 MG CAPSULE (FP) PO SCH ×4 (17:22→22:52)
[2021-10-04] MEDS: NICOTINE 14 MG/24 HOURS TOPICAL PATCH TD SCH (17:22)
[2021-10-04] MEDS: GABAPENTIN 400 MG CAPSULE PO SCH (22:52)
[2021-10-04] MEDS: THIAMINE HCL 100 MG TABLET (FP) PO SCH (22:52)
[2021-10-04] MEDS: MELATONIN 5 MG TABLETS PO SCH (22:52)
[2021-10-05] MEDS: diazePAM 5 MG TABLET PO SCH ×4 (06:14→22:52)
[2021-10-05] MEDS: GABAPENTIN 400 MG CAPSULE PO SCH ×3 (06:15→22:52)
[2021-10-05] MEDS: hydrOXYzine PAMOATE 25 MG CAPSULE (FP) PO SCH ×5 (06:15→22:52)
[2021-10-05] MEDS ORDERED: VENLAFAXINE HCL 150 MG E.R. CAPSULE PO SCH (10:00)
[2021-10-05] MEDS ORDERED: methaDONE HCL 10 MG TABLET PO SCH (10:45)
[2021-10-05] MEDS ORDERED: methaDONE 40 MG, methaDONE 20 MG PO SCH (11:15)
[2021-10-05] MEDS: METHOCARBAMOL 500 MG TABLET PO PRN (11:26)
[2021-10-05] MEDS: VENLAFAXINE HCL 75 MG E.R. CAPSULES PO SCH (11:26)
[2021-10-05] MEDS: PRENATAL VITAMINS W/ FOLIC ACID TABLET (FP) PO SCH (11:27)
[2021-10-05] MEDS: NICOTINE 14 MG/24 HOURS TOPICAL PATCH TD SCH (11:27)
[2021-10-05] MEDS ORDERED: methaDONE HCL 40 MG DISPERSABLE TABLET ONE (11:28)
[2021-10-05] MEDS ORDERED: methaDONE HCL 10 MG TABLET ONE (11:28)
[2021-10-05] MEDS: diazePAM 5 MG TABLET PO PRN (13:43)
[2021-10-05] MEDS ORDERED: GABAPENTIN 300 MG CAPSULE PO SCH (14:00)
[2021-10-05] MEDS: NICOTINE 10 MG CARTRIDGE (INHALER) IH PRN (15:30)
[2021-10-05] MEDS: THIAMINE HCL 100 MG TABLET (FP) PO SCH (22:51)
[2021-10-05] MEDS: MELATONIN 5 MG TABLETS PO SCH (22:52)
[2021-10-06] MEDS ORDERED: methaDONE HCL 40 MG DISPERSABLE TABLET ONE (04:57)
[2021-10-06] MEDS ORDERED: methaDONE HCL 10 MG TABLET ONE (04:57)
[2021-10-06] MEDS: hydrOXYzine PAMOATE 25 MG CAPSULE (FP) PO SCH ×5 (05:56→22:50)
[2021-10-06] MEDS: GABAPENTIN 400 MG CAPSULE PO SCH ×3 (05:56→22:50)
[2021-10-06] MEDS: diazePAM 5 MG TABLET PO SCH ×3 (05:56→22:51)
[2021-10-06] MEDS ORDERED: methaDONE HCL 10 MG TABLET PO SCH (06:00)
[2021-10-06] MEDS ORDERED: methaDONE 40 MG, methaDONE 30 MG PO SCH (06:00)
[2021-10-06] MEDS: diazePAM 5 MG TABLET PO PRN ×2 (09:01→18:14)
[2021-10-06] MEDS: PRENATAL VITAMINS W/ FOLIC ACID TABLET (FP) PO SCH (10:15)
[2021-10-06] MEDS: VENLAFAXINE HCL 75 MG E.R. CAPSULES PO SCH (10:15)
[2021-10-06] MEDS: NICOTINE 14 MG/24 HOURS TOPICAL PATCH TD SCH (10:15)
[2021-10-06 12:00] LABS: HEMATOCRIT 40.7 % (35.4-49); MCH 27.9 pg (25.7-33.7); MCHC 31.9 g/dl (32.0-35.9); MEAN CELL VOLUME 87.3 fl (80-96); MEAN PLT VOLUME 8.6 fl (7.5-11.1); PLATELET COUNT 279 10^3/uL (134-434); RBC 4.66 M/mm3 (4.00-5.60); RDW 13.5 % (11.9-15.9); WHITE BLOOD COUNT 6.6 K/mm3 (4.0-10.0)
[2021-10-06 12:06] LABS: BLOOD UREA NITROGEN 7.5 mg/dL (7-18); CALCIUM 8.7 mg/dL (8.5-10.1)
[2021-10-06 12:07] LABS: ALBUMIN 3.6 g/dl (3.4-5.0)
[2021-10-06 12:09] LABS: CREATININE 0.7 mg/dL (0.55-1.3)
[2021-10-06 12:11] LABS: BILIRUBIN,TOTAL 0.3 mg/dL (0.2-1); TOT PROT 7.3 g/dl (6.4-8.2)
[2021-10-06] MEDS: NITROFURANTOIN MACROCRYSTAL 50 MG CAPSULE (FP) PO SCH (22:50)
[2021-10-06] MEDS: MELATONIN 5 MG TABLETS PO SCH (22:50)
[2021-10-06] MEDS: THIAMINE HCL 100 MG TABLET (FP) PO SCH (22:50)
[2021-10-06] MEDS: METHOCARBAMOL 500 MG TABLET PO PRN (22:51)
[2021-10-07 01:20] LABS: URINE APPEARANCE TURBID; URINE BILIRUBIN NEGATIVE (NEGATIVE); URINE COLOR YELLOW; URINE GLUCOSE (UA) NEGATIVE (NEGATIVE); URINE KETONE NEGATIVE (NEGATIVE); URINE LEUK ESTERASE NEGATIVE (NEGATIVE); URINE NITRITE NEGATIVE (NEGATIVE); URINE PROTEIN NEGATIVE (NEGATIVE); URINE UROBILINOGEN 0.2 mg/dL (0.2-1.0)
[2021-10-07] MEDS: diazePAM 5 MG TABLET PO SCH ×2 (06:38→17:19)
[2021-10-07] MEDS: GABAPENTIN 400 MG CAPSULE PO SCH ×3 (06:38→22:07)
[2021-10-07] MEDS: hydrOXYzine PAMOATE 25 MG CAPSULE (FP) PO SCH ×5 (06:39→22:07)
[2021-10-07] MEDS: diazePAM 5 MG TABLET PO PRN (09:30)
[2021-10-07] MEDS: NICOTINE 14 MG/24 HOURS TOPICAL PATCH TD SCH (10:25)
[2021-10-07] MEDS: PRENATAL VITAMINS W/ FOLIC ACID TABLET (FP) PO SCH (10:25)
[2021-10-07] MEDS: VENLAFAXINE HCL 150 MG E.R. CAPSULE PO SCH (10:25)
[2021-10-07] MEDS ORDERED: methaDONE HCL 40 MG DISPERSABLE TABLET PO ONE (11:00)
[2021-10-07] MEDS: NICOTINE 10 MG CARTRIDGE (INHALER) IH PRN (12:18)
[2021-10-07] MEDS: METHOCARBAMOL 500 MG TABLET PO PRN (14:49)
[2021-10-07] MEDS ORDERED: diazePAM 5 MG TABLET PO ONE (22:00)
[2021-10-07] MEDS: MELATONIN 5 MG TABLETS PO SCH (22:07)
[2021-10-07] MEDS: NITROFURANTOIN MACROCRYSTAL 50 MG CAPSULE (FP) PO SCH (22:07)
[2021-10-07] MEDS: THIAMINE HCL 100 MG TABLET (FP) PO SCH (22:07)
[2021-10-08] MEDS: METHOCARBAMOL 500 MG TABLET PO PRN (03:15)
[2021-10-08] MEDS ORDERED: methaDONE HCL 10 MG TABLET ONE (04:11)
[2021-10-08] MEDS ORDERED: methaDONE HCL 40 MG DISPERSABLE TABLET ONE (04:11)
[2021-10-08] MEDS: GABAPENTIN 400 MG CAPSULE PO SCH (05:53)
[2021-10-08] MEDS: hydrOXYzine PAMOATE 25 MG CAPSULE (FP) PO SCH ×2 (05:53→10:13)
[2021-10-08] MEDS ORDERED: methaDONE 80 MG, methaDONE 10 MG PO SCH (06:00)
[2021-10-08] MEDS ORDERED: diazePAM 5 MG TABLET PO ONE (06:00)
[2021-10-08] MEDS ORDERED: methaDONE HCL 10 MG TABLET PO SCH (06:00)
[2021-10-08 06:08] VITALS: TEMP 97.3
[2021-10-08 08:39] VITALS: BP 124/74; PULSE 68
[2021-10-08] MEDS: VENLAFAXINE HCL 150 MG E.R. CAPSULE PO SCH (10:12)
[2021-10-08] MEDS: PRENATAL VITAMINS W/ FOLIC ACID TABLET (FP) PO SCH (10:12)
[2021-10-08] MEDS: NICOTINE 14 MG/24 HOURS TOPICAL PATCH TD SCH (10:13)
== END 2021-10-08 11:00 | disposition home or self-care (01) | DRG 773 ==
LOC: YASAS 12:52 → Y3N 15:22
PROVIDERS: ADMIT Allergy & Immunology; ATTEND Allergy & Immunology
PROC: HZ2ZZZZ Detoxification Services for Substance Abuse Treatment (ICD-10-PCS; principal; 2021-10-04)
DX: F11.23 Opioid dependence with withdrawal (principal); F13.20 Sedative, hypnotic or anxiolytic dependence, uncomplicated; F14.20 Cocaine dependence, uncomplicated; F17.210 Nicotine dependence, cigarettes, uncomplicated; F19.280 Other psychoactive substance dependence with psychoactive substance-induced anxiety disorder; F19.24 Other psychoactive substance dependence with psychoactive substance-induced mood disorder; F43.10 Post-traumatic stress disorder, unspecified; F90.9 Attention-deficit hyperactivity disorder, unspecified type; F41.9 Anxiety disorder, unspecified; F32.A Depression, unspecified; G40.909 Epilepsy, unspecified, not intractable, without status epilepticus; R03.0 Elevated blood-pressure reading, without diagnosis of hypertension; Z86.19 Personal history of other infectious and parasitic diseases; Z56.0 Unemployment, unspecified; Z59.00 Homelessness unspecified
CPT/HCPCS: 36415; 80053; 81003; 85027; 86780; C9803; Q0162; U0003; U0005

== ENCOUNTER 2021-12-19 17:41 | Inpatient (IN) | payer OTHER ==
[2021-12-19 18:17] VITALS: BMI 34.6
[2021-12-19] MEDS ORDERED: ACETAMINOPHEN 325 MG TABLET (FP) PO PRN ×2 (20:57)
[2021-12-19] MEDS ORDERED: DICYCLOMINE HCL 10 MG CAPSULE PO PRN (20:57)
[2021-12-19] MEDS ORDERED: IBUPROFEN 400 MG TABLET (FP) PO PRN (20:57)
[2021-12-19] MEDS ORDERED: MAG HYDROX/AL HYDROX/SIMETH 30 ML UNIT-DOSE CUP PO PRN (20:57)
[2021-12-19] MEDS ORDERED: LOPERAMIDE HCL 2 MG CAPSULE PO PRN (20:57)
[2021-12-19] MEDS ORDERED: MAGNESIUM HYDROX 2400MG/30ML ORAL SUSPENSION 30 ML CUP PO PRN (20:57)
[2021-12-19] MEDS ORDERED: ONDANSETRON *ODT* 4 MG TABLET SL PRN (20:57)
[2021-12-19] MEDS ORDERED: BISMUTH SUBSALICYLATE 524 MG/30 ML PO PRN (20:57)
[2021-12-19] MEDS ORDERED: MAGNESIUM CITRATE 300 ML BOTTLE PO PRN (20:57)
[2021-12-19] MEDS ORDERED: BENZOCAINE/MENTHOL (CHLORASEPTIC ) LOZENGE MM PRN (20:57)
[2021-12-20] MEDS ORDERED: METHOCARBAMOL 500 MG TABLET ONE (02:45)
[2021-12-20] MEDS: METHOCARBAMOL 500 MG TABLET PO PRN ×2 (02:49→17:10)
[2021-12-20] MEDS: PRENATAL VITAMINS W/ FOLIC ACID TABLET (FP) PO SCH (09:18)
[2021-12-20] MEDS: diazePAM 5 MG TABLET PO SCH ×3 (10:12→22:08)
[2021-12-20] MEDS: NICOTINE 14 MG/24 HOURS TOPICAL PATCH TD SCH (11:57)
[2021-12-20] MEDS: THIAMINE HCL 100 MG TABLET (FP) PO SCH ×2 (12:41→22:06)
[2021-12-20] MEDS: MELATONIN 5 MG TABLETS PO SCH ×2 (12:41→22:06)
[2021-12-20] MEDS: diazePAM 5 MG TABLET PO PRN (12:48)
[2021-12-20] MEDS: GABAPENTIN 100 MG CAPSULE PO SCH (22:06)
[2021-12-20] MEDS: NICOTINE 10 MG CARTRIDGE (INHALER) IH PRN (22:09)
[2021-12-21] MEDS: GABAPENTIN 100 MG CAPSULE PO SCH ×3 (06:22→22:31)
[2021-12-21] MEDS: diazePAM 5 MG TABLET PO SCH ×4 (06:22→22:31)
[2021-12-21] MEDS: PRENATAL VITAMINS W/ FOLIC ACID TABLET (FP) PO SCH (11:01)
[2021-12-21] MEDS: NICOTINE 10 MG CARTRIDGE (INHALER) IH PRN ×2 (11:02→18:33)
[2021-12-21] MEDS: NICOTINE 14 MG/24 HOURS TOPICAL PATCH TD SCH (11:03)
[2021-12-21] MEDS: VENLAFAXINE HCL 150 MG E.R. CAPSULE PO SCH (12:37)
[2021-12-21] MEDS: diazePAM 5 MG TABLET PO PRN (13:31)
[2021-12-21] MEDS: THIAMINE HCL 100 MG TABLET (FP) PO SCH (22:31)
[2021-12-21] MEDS: MELATONIN 5 MG TABLETS PO SCH (22:31)
[2021-12-22] MEDS: GABAPENTIN 100 MG CAPSULE PO SCH ×3 (05:31→22:27)
[2021-12-22] MEDS: diazePAM 5 MG TABLET PO SCH ×3 (05:31→22:28)
[2021-12-22] MEDS: diazePAM 5 MG TABLET PO PRN ×2 (08:00→17:33)
[2021-12-22] MEDS: PRENATAL VITAMINS W/ FOLIC ACID TABLET (FP) PO SCH (10:13)
[2021-12-22] MEDS: VENLAFAXINE HCL 150 MG E.R. CAPSULE PO SCH (10:13)
[2021-12-22] MEDS: NICOTINE 14 MG/24 HOURS TOPICAL PATCH TD SCH (10:13)
[2021-12-22] MEDS: BUPRENORPHINE/NALOXONE 8 MG/2 MG FILM PACKET SL SCH ×3 (10:13→22:27)
[2021-12-22 13:42] LABS: ALBUMIN 3.4 g/dl (3.4-5.0); CALCIUM 8.5 mg/dL (8.5-10.1)
[2021-12-22 13:45] LABS: CREATININE 0.7 mg/dL (0.55-1.3)
[2021-12-22 13:47] LABS: BILIRUBIN,TOTAL 0.2 mg/dL (0.2-1); TOT PROT 7.3 g/dl (6.4-8.2)
[2021-12-22 14:07] LABS: BASO % 1.1 % (0-2.0); EOS % 1.8 % (0-4.5); HEMATOCRIT 38.8 % (35.4-49); LYMPH % 53.8 % (8-40); MCH 28.3 pg (25.7-33.7); MCHC 33.6 g/dl (32.0-35.9); MEAN CELL VOLUME 84.2 fl (80-96); MEAN PLT VOLUME 8.2 fl (7.5-11.1); MONO % 5.3 % (3.8-10.2); PLATELET COUNT 205 10^3/uL (134-434); RBC 4.61 M/mm3 (4.00-5.60); RDW 15.4 % (11.9-15.9)
[2021-12-22] MEDS: MELATONIN 5 MG TABLETS PO SCH (22:27)
[2021-12-22] MEDS: THIAMINE HCL 100 MG TABLET (FP) PO SCH (22:28)
[2021-12-22] MEDS: NICOTINE 10 MG CARTRIDGE (INHALER) IH PRN (22:30)
[2021-12-22 23:11] LABS: SARS-CoV-2 NAA Not Detected (Not Detected)
[2021-12-23] MEDS: diazePAM 5 MG TABLET PO SCH ×2 (06:27→17:18)
[2021-12-23] MEDS: GABAPENTIN 100 MG CAPSULE PO SCH ×3 (06:27→22:30)
[2021-12-23] MEDS: BUPRENORPHINE/NALOXONE 8 MG/2 MG FILM PACKET SL SCH ×3 (07:23→22:31)
[2021-12-23] MEDS ORDERED: cloNIDine HCL 0.1 MG TABLET PO PRN (10:08)
[2021-12-23] MEDS: VENLAFAXINE HCL 150 MG E.R. CAPSULE PO SCH (10:16)
[2021-12-23] MEDS: PRENATAL VITAMINS W/ FOLIC ACID TABLET (FP) PO SCH (10:16)
[2021-12-23] MEDS: NICOTINE 14 MG/24 HOURS TOPICAL PATCH TD SCH (10:16)
[2021-12-23] MEDS: hydrOXYzine PAMOATE 25 MG CAPSULE (FP) PO PRN ×2 (10:16→17:19)
[2021-12-23] MEDS: NICOTINE 10 MG CARTRIDGE (INHALER) IH PRN ×2 (17:36→22:30)
[2021-12-23 20:39] VITALS: TEMP 98.1
[2021-12-23] MEDS: MELATONIN 5 MG TABLETS PO SCH (22:30)
[2021-12-23] MEDS: THIAMINE HCL 100 MG TABLET (FP) PO SCH (22:32)
[2021-12-24] MEDS: BUPRENORPHINE/NALOXONE 8 MG/2 MG FILM PACKET SL SCH (05:39)
[2021-12-24] MEDS: GABAPENTIN 100 MG CAPSULE PO SCH (05:39)
[2021-12-24] MEDS ORDERED: diazePAM 5 MG TABLET PO ONE (06:00)
[2021-12-24] MEDS: NICOTINE 10 MG CARTRIDGE (INHALER) IH PRN (07:04)
[2021-12-24 07:10] VITALS: BP 129/83; PULSE 64
[2021-12-24] MEDS: VENLAFAXINE HCL 150 MG E.R. CAPSULE PO SCH (09:02)
[2021-12-24] MEDS: NICOTINE 14 MG/24 HOURS TOPICAL PATCH TD SCH (09:03)
[2021-12-24] MEDS: PRENATAL VITAMINS W/ FOLIC ACID TABLET (FP) PO SCH (09:03)
== END 2021-12-24 09:44 | disposition home or self-care (01) | DRG 773 ==
LOC: YASAS 17:41 → Y3N 12-20 10:23
PROVIDERS: ADMIT Allergy & Immunology; ATTEND Allergy & Immunology
PROC: HZ2ZZZZ Detoxification Services for Substance Abuse Treatment (ICD-10-PCS; principal; 2021-12-20)
DX: F13.230 Sedative, hypnotic or anxiolytic dependence with withdrawal, uncomplicated (principal); F11.20 Opioid dependence, uncomplicated; F14.20 Cocaine dependence, uncomplicated; F17.210 Nicotine dependence, cigarettes, uncomplicated; F19.24 Other psychoactive substance dependence with psychoactive substance-induced mood disorder; F41.8 Other specified anxiety disorders; F32.A Depression, unspecified; F90.9 Attention-deficit hyperactivity disorder, unspecified type; B18.2 Chronic viral hepatitis C; R56.9 Unspecified convulsions; Z86.19 Personal history of other infectious and parasitic diseases; Z91.14 Patient's other noncompliance with medication regimen; Z56.0 Unemployment, unspecified; Z59.01 Sheltered homelessness
CPT/HCPCS: 36415; 80053; 85025; 93005; 93010; C9803-CS; U0003; U0005

== ENCOUNTER 2024-05-29 10:14 | Inpatient (IN) | payer OTHER ==
[2024-05-29 10:37] VITALS: BMI 32.5
[2024-05-29] MEDS ORDERED: ACETAMINOPHEN 325 MG TABLET (FP) PO PRN (11:42)
[2024-05-29] MEDS ORDERED: LOPERAMIDE HCL 2 MG CAPSULE PO PRN (11:42)
[2024-05-29] MEDS ORDERED: MAG HYDROX/AL HYDROX/SIMETH 30 ML UNIT-DOSE CUP PO PRN (11:42)
[2024-05-29] MEDS ORDERED: BENZONATATE 200 MG CAPSULE PO PRN (11:42)
[2024-05-29] MEDS ORDERED: NALOXONE (NARCAN) HCL 4 MG/0.1 ML SPRAY NS PRN (11:42)
[2024-05-29] MEDS ORDERED: BENZOCAINE/MENTHOL (CHLORASEPTIC ) LOZENGE MM PRN (11:42)
[2024-05-29] MEDS ORDERED: MAGNESIUM HYDROX 2400MG/30ML ORAL SUSPENSION 30 ML CUP PO PRN (11:42)
[2024-05-29] MEDS ORDERED: POLYETHYLENE GLYCOL (HEALTHYLAX) 3350 17 GM PACKET PO PRN (11:42)
[2024-05-29] MEDS ORDERED: NALOXONE HCL 0.4 MG/ML VIAL IM PRN (11:42)
[2024-05-29] MEDS ORDERED: BISMUTH SUBSALICYLATE 524 MG/30 ML PO PRN (11:42)
[2024-05-29] MEDS ORDERED: methaDONE HCL 10 MG TABLET (FOR DETOX USE ONLY) ONE (12:03)
[2024-05-29] MEDS: methaDONE HCL 10 MG TABLET PO ONE (12:10)
[2024-05-29] MEDS: diazePAM 5 MG TABLET PO PRN (13:20)
[2024-05-29] MEDS: diazePAM 5 MG TABLET PO SCH (17:13)
[2024-05-29] MEDS: ONDANSETRON *ODT* 4 MG TABLET SL PRN (17:17)
[2024-05-29] MEDS: IBUPROFEN 400 MG TABLET (FP) PO PRN (17:43)
[2024-05-29] MEDS: DICYCLOMINE HCL 10 MG CAPSULE PO PRN (17:43)
[2024-05-29] MEDS: cloNIDine HCL 0.1 MG TABLET PO PRN (17:51)
[2024-05-29] MEDS: hydrOXYzine PAMOATE 25 MG CAPSULE (FP) PO PRN (22:17)
[2024-05-29] MEDS: THIAMINE 100 MG TABLET PO SCH (22:17)
[2024-05-29] MEDS: MELATONIN 5 MG TABLETS PO SCH (22:17)
[2024-05-30] MEDS: NICOTINE 21 MG/24 HOURS TOPICAL PATCH TD SCH (10:58)
[2024-05-30] MEDS: PRENATAL VITAMINS W/ FOLIC ACID TABLET (FP) PO SCH (10:58)
[2024-05-30] MEDS: methaDONE HCL 40 MG DISPERSABLE TABLET PO SCH (11:04)
[2024-05-30 11:24] LABS: HEMOGLOBIN 12.3 GM/dL (11.7-16.9); MCH 27.8 pg (25.7-33.7); MCHC 33.3 g/dl (32.0-35.9); MEAN CELL VOLUME 83.7 fl (80-96); MEAN PLT VOLUME 7.4 fl (7.5-11.1); PLATELET COUNT 254 10^3/uL (134-434); RBC 4.42 M/mm3 (4.00-5.60); RDW 14.1 % (11.9-15.9); WHITE BLOOD COUNT 4.4 K/mm3 (4.0-10.0)
[2024-05-30] MEDS: GABAPENTIN 300 MG CAPSULE PO SCH (13:08)
[2024-05-30 13:28] LABS: CHLORIDE 108 mmol/L (98-107); POTASSIUM 3.9 mmol/L (3.5-5.1); SODIUM 143 mmol/L (136-145)
[2024-05-30 13:30] LABS: CALCIUM 8.7 mg/dL (8.5-10.1)
[2024-05-30 13:31] LABS: ALBUMIN 3.2 g/dl (3.4-5.0); ANION GAP 7 mmol/L (4-13); BLOOD UREA NITROGEN 13.1 mg/dL (7-18); CO2 28 mmol/L (21-32); GLUCOSE,RANDOM 86 mg/dL (74-106)
[2024-05-30 13:34] LABS: CREATININE 0.5 mg/dL (0.55-1.3); SGOT/AST 21 U/L (15-37)
[2024-05-30 13:36] LABS: BILIRUBIN,TOTAL 0.2 mg/dL (0.2-1); TOT PROT 6.6 g/dl (6.4-8.2)
[2024-05-30 13:37] LABS: ALK PHOS 102 U/L (45-117)
[2024-05-30 13:52] LABS: SGPT/ALT 27 U/L (13-61)
[2024-05-30] MEDS ORDERED: PATIENT'S OWN MEDICATION (NON-FORMULARY) (Gabapentin [Gralise] 600 MG Tab.Er.24h) PO SCH (14:00)
[2024-05-30 14:44] LABS: HIV INTERPRETATION NEGATIVE (NEGATIVE)
[2024-05-30] MEDS: IBUPROFEN 600 MG TABLET (FP) PO PRN (17:36)
[2024-05-30] MEDS: guaiFENesin 600 MG TABLET.ER (FP) PO PRN (17:36)
[2024-05-30] MEDS: SUVOREXANT 10 MG TABLET PO PRN (22:21)
[2024-05-31] MEDS: diazePAM 5 MG TABLET PO SCH (05:26)
[2024-05-31] MEDS: METHOCARBAMOL 500 MG TABLET PO PRN (09:38)
[2024-06-01] MEDS: diazePAM 5 MG TABLET PO SCH (05:31)
[2024-06-02] MEDS: diazePAM 5 MG TABLET PO ONE (05:38)
[2024-06-02 09:12] VITALS: BP 130/70; PULSE 76; RESP 18; TEMP 97.7
== END 2024-06-02 09:27 | disposition home or self-care (01) | DRG 773 ==
LOC: YASAS 10:14 → Y6N 11:53
PROVIDERS: ADMIT Surgery; ATTEND Surgery
PROC: HZ2ZZZZ Detoxification Services for Substance Abuse Treatment (ICD-10-PCS; principal; 2024-05-29)
DX: F10.230 Alcohol dependence with withdrawal, uncomplicated (principal); F13.230 Sedative, hypnotic or anxiolytic dependence with withdrawal, uncomplicated; F11.20 Opioid dependence, uncomplicated; F17.210 Nicotine dependence, cigarettes, uncomplicated; F41.9 Anxiety disorder, unspecified; F32.A Depression, unspecified; E86.0 Dehydration; Z59.00 Homelessness unspecified
CPT/HCPCS: 36415; 71046-TC-FY; 80053; 80305; 80307; 85027; 86780; 87389; 93005; 93010; Q0162